=== PATIENT | female | born 1985 ===

== ENCOUNTER 2020-08-19 01:08 | Observation (INO) | payer OTHER ==
[~2020-08-19] VITALS: Ht 167.6 cm; Wt 127.3 kg
[2020-08-19] VITALS (7 sets, daily range): BP systolic 119–142; BP diastolic 65–80; PULSE 63–109; TEMP 97.6–98.2
[2020-08-19 01:38] LABS: BASO % 0.3 % (0.0-2.0); EOS # 0.2 (0.0-0.7); EOS % 1.2 % (0-4.0); GRAN # 10.5 (1.4-6.5); HEMATOCRIT 37.8 % (37.0-47.0); HEMOGLOBIN 12.4 g/dl (12.5-16.0); LYMPH # 1.8 (1.2-3.4); LYMPH % 13.7 % (20.0-51.0); MEAN CELL VOLUME 84 fl (80.0-100.0); MEAN CORPUSCULAR HEMOGLOBIN 27 pg (27.0-31.0); MEAN CORPUSCULAR HGB CONC 33 g/dl (33.0-37.0); MEAN PLATELET VOLUME 10.2 fl (7.4-10.4); MONO # 0.7 (0.1-0.6); MONO % 5.4 % (1.7-9.3); PLATELET COUNT 350 K/mm3 (130-400); RED BLOOD COUNT 4.52 M/mm3 (4.10-5.30)
[2020-08-19] MEDS ORDERED: LOPRESSOR100 MG PO (01:42)
[2020-08-19] MEDS ORDERED: SYNTHROID0.1 MG/TAB PO (01:43)
[2020-08-19] MEDS ORDERED: SYNTHROID0.112 MG/T PO (01:44)
[2020-08-19] MEDS ORDERED: DIOVAN 160MG160 MG PO (01:45)
[2020-08-19] MEDS ORDERED: ONE DAILY MULTI1 TA1 (01:46)
[2020-08-19] MEDS ORDERED: ZYRTEC 10MG10 MG PO (01:47)
[2020-08-19 01:52] LABS: INR 1.2 (0.8-3.0); PROTHROMBIN TIME 13.1 SECONDS (9.7-12.8)
[2020-08-19 01:57] LABS: ALANINE AMINOTRANSFERASE 43 U/L (4-34); ALBUMIN 4.4 gm/dL (3.5-5.0); ALKALINE PHOSPHATASE 77 U/L (50-136); ANION GAP 12 mmol/L (7-16); AST,SGOT 32 U/L (15-37); BILIRUBIN,TOTAL 0.1 mg/dL (0.0-1.0); BLOOD UREA NITROGEN 7 mg/dL (7-17); CALCIUM 9.4 mg/dL (8.4-10.2); CARBON DIOXIDE 19 mmol/L (22-30); CHLORIDE 107 mmol/L (98-107); CREATININE, serum 0.48 (0.52-1.25); GLUCOSE 122 mg/dL (74-106); POTASSIUM 3.9 mmol/L (3.4-5.0); SODIUM 138 mmol/L (137-145)
[2020-08-19 02:11] LABS: TROPONIN-I < 0.012 ng/mL (0.000-0.035)
[2020-08-19] MEDS ORDERED: ASPIRIN 32325 MG/TAB PO (03:26)
[2020-08-19 04:37] LABS: CHOLESTEROL RISK RATIO 2.8; MAGNESIUM 2.1 mg/dL (1.6-2.3)
--- NOTE | 2020-08-19 05:00 | NUR ---
Patient to medical room 309 at this time. She ambulates steadily from wheelchair to bed. She is alert and oriented and states she is still feeling chest tightness, but is much improved since arriving to ED. Heart rate is regular and tachycardic, lung sounds clear. No edema is present but patient is overweight. Pulses 2+ over 1+. Patient appears very anxious. Education regarding POC and room ammenities provided. Will continue to monitor.
[2020-08-19 05:08] LABS: TSH w REFLEX 4.5 uIU/mL (0.465-4.680)
--- NOTE | 2020-08-19 07:41 | NUR ---
Pt assessment complete. Pt is laying in bed upon entry, she is A/O x4. Pt is very anxious at this time. Asking for her Metoprolol. Discussed with patient POC. Pt frequently talking over staff, anxious about receiving her medications. Currently reports chest tightness, but states it is better than when she came in. No pain at this time. Denies SOB. Pt requesting to sleep at this time.
[2020-08-19 08:07] LABS: BASO # 0.1 (0.0-0.2); BASO % 0.6 % (0.0-2.0); EOS # 0.2 (0.0-0.7); EOS % 1.7 % (0-4.0); GRAN # 7.3 (1.4-6.5); GRAN % 67.5 % (42.2-75.2); HEMOGLOBIN 11.5 g/dl (12.5-16.0); LYMPH # 2.5 (1.2-3.4); LYMPH % 23.5 % (20.0-51.0); MEAN CELL VOLUME 84 fl (80.0-100.0); MEAN CORPUSCULAR HEMOGLOBIN 27 pg (27.0-31.0); MEAN CORPUSCULAR HGB CONC 33 g/dl (33.0-37.0); MEAN PLATELET VOLUME 11.2 fl (7.4-10.4); MONO # 0.7 (0.1-0.6); MONO % 6.2 % (1.7-9.3); PLATELET COUNT 293 K/mm3 (130-400); RED BLOOD COUNT 4.23 M/mm3 (4.10-5.30); REDCELL DISTRIBUTION WIDTH-CV 13.9 % (11.5-14.5)
[2020-08-19 08:09] LABS: HEMATOCRIT 35.3 % (37.0-47.0)
[2020-08-19 08:18] LABS: ANION GAP 9 mmol/L (7-16); BLOOD UREA NITROGEN 6 mg/dL (7-17); CALCIUM 8.9 mg/dL (8.4-10.2); CARBON DIOXIDE 22 mmol/L (22-30); CHLORIDE 106 mmol/L (98-107); CREATININE, serum 0.46 (0.52-1.25); GLUCOSE 98 mg/dL (74-106); POTASSIUM 3.7 mmol/L (3.4-5.0); SODIUM 137 mmol/L (137-145)
[2020-08-19 08:30] LABS: TROPONIN-I < 0.012 ng/mL (0.000-0.035)
--- NOTE | 2020-08-19 13:00 | NUR ---
Computer Numerical Control Operator met with the patient to complete intake. The patient lives on [address] with her Black and their two children. The patient's PCP is Ms. Grimes at [facility] and patient receives medications on [place] as well. The patient does not have advanced directives in the EMR but states they are completed and designate Black. The patient plans to return home at discharge with Black providing transportation. Discharge disposition: Home with Black
--- NOTE | 2020-08-19 13:13 | NUR ---
Pt worried about starting new medications. Attempted to reassure patient, offered to have pharmacist come speak with patient. Pt comfortable with this. She is also asking about an ablation and VQ scan. Answered questions to best of ability. Call light within reach.
--- NOTE | 2020-08-19 16:37 | NUR ---
Pt refusing to take Losartan at this time. She would like to talk with Cardiology prior to taking this med and beta tressa. Cardiology contacted by Pharmacy as they had tried to speak with patient about medications.
--- NOTE | 2020-08-19 20:45 | NUR ---
Shift assessment completed. Patient denies SOB, headache, dizziness, or N/V. Patient reports some chest tightness. Patient was very anxious about starting her new medication Nadolol and wanted to talk to Dr. Stearns prior to taking medication. Called DR. Stearns and talked to the patient on the phone regarding new medication. After talking to Dr. Stearns, patient was still anxious about taking this medication. Called pharmacy and pharmacy staff talked with the patient on the phone. After talking to pharmacy staff, patient took Nadolol. Assisted patient took a shower afterwards. Sandwitch box provided per patient request. Call light within reach. Will continue to monitor.
--- NOTE | 2020-08-19 22:21 | NUR ---
Patient reports chest tightness gets worse and having sharp pain radiates to left shoulder and left arm for a few seconds around 2200 pm. BP was 137/77, HR 82 at this time. Called hospitalist ALISA Dangelo at 2200 and Loreto came to the room 309 to assess the patient. EKG ordered and done at this time. EKG result normal. Troponin lab draw at this time and wating for result. Patient was very very anxious about everything. PRN Ativan given for anxiety. Call light within reach. Will continue to monitor.
[2020-08-20 02:50] VITALS: BP 119/64; PULSE 87; TEMP 98
--- NOTE | 2020-08-20 05:57 | NUR ---
Patient fell asleep after PRN Ativan given last night. Patient slept through the night. VS WNL. HR was 75-85 throughout the night after the first dose of Nadolol. Call light within reach. Will give report to day shift nurse.
--- NOTE | 2020-08-20 07:00 | NUR ---
Report with NOHEMI Rosenthal. Pt resting in bed, drowsy, denies needs at this time. Call light in reach.
[2020-08-20 07:41] VITALS: BP 118/60; PULSE 85; TEMP 97.7
--- NOTE | 2020-08-20 08:00 | NUR ---
Assessment complete. Pt resting in bed, A&O x 4, reports headache that has lasted over NOC, requesting coffee but plan for day is unknown. Saline lock IV to left hand without s/s of complications. This nurse agrees to update pt with any changes in POC for the day. No further needs reported. Call light in reach.
--- NOTE | 2020-08-20 09:45 | NUR ---
Pt ambulating in room then reports dizziness with movement. VSS. Blood sugar assessed d/t pt not eating this morning, stable. Pt wondering about it being a side effect from the new medication last night. Provider notified.
[2020-08-20 09:50] VITALS: BP 128/77; PULSE 81
--- NOTE | 2020-08-20 10:40 | NUR ---
Pt to cardiopulmonary for testing via WC, reports still feeling dizzy but wants to try.
[2020-08-20 12:00] VITALS: BP 124/60; PULSE 72; TEMP 97.5
[2020-08-20] MEDS ORDERED: CORGARD80 MG PO (12:21)
[2020-08-20] MEDS ORDERED: DIOVAN 80MG80 MG PO (12:21)
--- NOTE | 2020-08-20 13:16 | NUR ---
First visit from the heel seat pounder. prayed with patient. No other needs right now.
[2020-08-20 15:20] VITALS: BP 133/78; PULSE 80
--- NOTE | 2020-08-20 16:26 | NUR ---
Discharge instructions reviewed with pt regarding new/changes to medications and follow-up appointments and using heart monitor upon arrival. Questions invited and answered. Pt verbalizes understanding, discharged home, ambulates out of facility accompanied by family and nurse.
[2020-08-21 10:32] LABS: ANA SCREEN with REFLEX Negative (Negative)
[2020-08-21 13:54] LABS: LUPUS ANTICOAGULANT INR 1.1 (0.7-1.3); LUPUS ANTICOAGULANT PT 14.1 Seconds (())
[2020-08-21 17:07] LABS: FACTOR V 68 % (70-120)
[2020-08-22 10:10] LABS: ANTI-THROMBIN III 100 % (72-128)
[2020-08-22 12:37] LABS: VW FACTOR ACTIVITY 110 % (55 - 200); VW FACTOR ANTIGEN 139 % (55 - 200)
[2020-08-22 16:05] LABS: VW COAG FACTOR 156 % (55 - 200)
[2020-08-25 11:59] LABS: INHIBITOR SCREEN INTERPRETATN SEE PCI; LUPUS ANTICOAG DRVVT CONFIRM SEE PCI; LUPUS DRVVT RATIO SEE PCI
[2020-08-25 12:00] LABS: HEXAGONAL PHOSPHOLIPID NEUTRAL SEE PCI; PT INCUBATED 1:1 MIXING STUDY SEE PCI; PT ROOM TEMP 1:1 MIXING STUDY SEE PCI; PTT INCUBATED 1:1 MIXING STUDY SEE PCI; PTT ROOM TEMP 1:1 MIXING STUDY SEE PCI; PTT-LA INCUBATED 1:1 MIX STUDY SEE PCI
== END 2020-08-20 16:30 | disposition home or self-care (01) ==
LOC: COL.ER 01:08 → MEDICAL 02:59
PROVIDERS: Emergency Medicine; Student in an Organized Health Care Education/Training Program; ADMIT Family Medicine
DX: R07.89 Other chest pain (principal); R00.2 Palpitations; I47.1 Supraventricular tachycardia; I34.1 Nonrheumatic mitral (valve) prolapse; D72.829 Elevated white blood cell count, unspecified; O03.9 Complete or unspecified spontaneous abortion without complication; I34.0 Nonrheumatic mitral (valve) insufficiency; E03.9 Hypothyroidism, unspecified; D64.9 Anemia, unspecified; F41.9 Anxiety disorder, unspecified; F32.9 Major depressive disorder, single episode, unspecified; Z88.6 Allergy status to analgesic agent; Z88.8 Allergy status to other drugs, medicaments and biological substances; Z88.1 Allergy status to other antibiotic agents; Z79.890 Hormone replacement therapy; Z79.899 Other long term (current) drug therapy; Z88.2 Allergy status to sulfonamides; Z86.718 Personal history of other venous thrombosis and embolism
CPT/HCPCS: 99239; A9540; A9567; G0378; J1644; J2060; J7030

== ENCOUNTER 2020-08-23 12:32 | Emergency (ER) | payer OTHER ==
[~2020-08-23] VITALS: Ht 167.6 cm; Wt 125.5 kg
[~2020-08-23 12:32] MED LIST: ASPIRIN 32325 MG/TAB PO; CORGARD80 MG PO; DIOVAN 160MG160 MG PO; DIOVAN 80MG80 MG PO; LOPRESSOR100 MG PO; ONE DAILY MULTI1 TA1; SYNTHROID0.1 MG/TAB PO; SYNTHROID0.112 MG/T PO; ZYRTEC 10MG10 MG PO
[2020-08-23 12:41] VITALS: TEMP 98.7
[2020-08-23 13:07] LABS: BASO # 0.1 (0.0-0.2); BASO % 0.5 % (0.0-2.0); EOS # 0.3 (0.0-0.7); EOS % 2.2 % (0-4.0); GRAN # 9.9 (1.4-6.5); GRAN % 79.5 % (42.2-75.2); HEMATOCRIT 40.4 % (37.0-47.0); HEMOGLOBIN 13.1 g/dl (12.5-16.0); LYMPH # 1.6 (1.2-3.4); LYMPH % 12.6 % (20.0-51.0); MEAN CELL VOLUME 85 fl (80.0-100.0); MEAN CORPUSCULAR HEMOGLOBIN 28 pg (27.0-31.0); MEAN CORPUSCULAR HGB CONC 32 g/dl (33.0-37.0); MEAN PLATELET VOLUME 10.6 fl (7.4-10.4); MONO # 0.6 (0.1-0.6); MONO % 4.7 % (1.7-9.3); PLATELET COUNT 376 K/mm3 (130-400); RED BLOOD COUNT 4.73 M/mm3 (4.10-5.30); REDCELL DISTRIBUTION WIDTH-CV 13.3 % (11.5-14.5)
[2020-08-23 13:18] LABS: ALANINE AMINOTRANSFERASE 80 U/L (4-34); ALBUMIN 4.4 gm/dL (3.5-5.0); ALKALINE PHOSPHATASE 74 U/L (50-136); ANION GAP 11 mmol/L (7-16); AST,SGOT 51 U/L (15-37); BILIRUBIN,TOTAL 0.3 mg/dL (0.0-1.0); BLOOD UREA NITROGEN 8 mg/dL (7-17); CALCIUM 9.4 mg/dL (8.4-10.2); CARBON DIOXIDE 25 mmol/L (22-30); CHLORIDE 102 mmol/L (98-107); CREATININE, serum 0.61 (0.52-1.25); GLUCOSE 98 mg/dL (74-106); POTASSIUM 3.9 mmol/L (3.4-5.0); SODIUM 138 mmol/L (137-145); TOTAL PROTEIN 9.2 gm/dL (6.4-8.2)
[2020-08-23 13:20] LABS: INR 1.2 (0.8-3.0); PROTHROMBIN TIME 13.5 SECONDS (9.7-12.8)
[2020-08-23 13:23] LABS: PARTIAL THROMBOPLASTIN TIME 32.8 SECONDS (26.0-37.0)
[2020-08-23 13:28] LABS: TROPONIN-I < 0.012 ng/mL (0.000-0.035)
[2020-08-23 14:29] VITALS: BP 120/80; PULSE 80
== END 2020-08-23 14:29 | disposition home or self-care (01) ==
LOC: COL.ER 12:32
PROVIDERS: Family Medicine
DX: F41.9 Anxiety disorder, unspecified (principal); I10 Essential (primary) hypertension; E03.9 Hypothyroidism, unspecified; Z88.1 Allergy status to other antibiotic agents; Z88.2 Allergy status to sulfonamides; Z88.5 Allergy status to narcotic agent; Z88.8 Allergy status to other drugs, medicaments and biological substances; Z79.890 Hormone replacement therapy; Z79.82 Long term (current) use of aspirin
CPT/HCPCS: J2060

== ENCOUNTER 2020-08-27 19:16 | Emergency (ER) | payer OTHER ==
[~2020-08-27] VITALS: Ht 167.6 cm; Wt 125.5 kg
[2020-08-27 19:51] VITALS: BP 132/65; TEMP 98.6
[2020-08-27 22:29] LABS: BASO % 0.2 % (0.0-2.0); GRAN # 9.5 (1.4-6.5); HEMATOCRIT 39.2 % (37.0-47.0); HEMOGLOBIN 12.7 g/dl (12.5-16.0); LYMPH # 0.7 (1.2-3.4); MEAN CELL VOLUME 85 fl (80.0-100.0); MEAN CORPUSCULAR HEMOGLOBIN 28 pg (27.0-31.0); MEAN CORPUSCULAR HGB CONC 32 g/dl (33.0-37.0); MEAN PLATELET VOLUME 11.6 fl (7.4-10.4); MONO # 0.3 (0.1-0.6); MONO % 2.4 % (1.7-9.3); PLATELET COUNT 349 K/mm3 (130-400); RED BLOOD COUNT 4.62 M/mm3 (4.10-5.30); REDCELL DISTRIBUTION WIDTH-CV 13.6 % (11.5-14.5)
[2020-08-27 22:37] LABS: ALBUMIN 4.5 gm/dL (3.5-5.0); BILIRUBIN,TOTAL 0.1 mg/dL (0.0-1.0); CALCIUM 9.5 mg/dL (8.4-10.2); CREATININE, serum 0.46 (0.52-1.25); POTASSIUM 3.8 mmol/L (3.4-5.0); TOTAL PROTEIN 9.2 gm/dL (6.4-8.2)
[2020-08-27 23:17] VITALS: PULSE 98
== END 2020-08-27 23:18 | disposition home or self-care (01) ==
LOC: COL.ER 19:16
PROVIDERS: Nurse Practitioner Primary Care
DX: F41.9 Anxiety disorder, unspecified (principal); R00.2 Palpitations; T44.7X5A Adverse effect of beta-adrenoreceptor antagonists, initial encounter; I10 Essential (primary) hypertension; E03.9 Hypothyroidism, unspecified; G43.909 Migraine, unspecified, not intractable, without status migrainosus; Z86.718 Personal history of other venous thrombosis and embolism; Z88.6 Allergy status to analgesic agent; Z88.1 Allergy status to other antibiotic agents; Z88.5 Allergy status to narcotic agent; Z88.2 Allergy status to sulfonamides; Z88.8 Allergy status to other drugs, medicaments and biological substances; Z79.890 Hormone replacement therapy; Z79.82 Long term (current) use of aspirin; Z79.899 Other long term (current) drug therapy
CPT/HCPCS: J2930

== ENCOUNTER 2020-09-27 07:38 | Emergency (ER) | payer OTHER ==
[~2020-09-27] VITALS: Ht 167.6 cm; Wt 127.3 kg
[2020-09-27 07:44] VITALS: TEMP 97.9
[2020-09-27 10:30] VITALS: BP 132/91; PULSE 85
== END 2020-09-27 10:31 | disposition home or self-care (01) ==
LOC: COL.ER 07:38
DX: M79.89 Other specified soft tissue disorders (principal); F41.9 Anxiety disorder, unspecified; I10 Essential (primary) hypertension; E03.9 Hypothyroidism, unspecified; Z88.1 Allergy status to other antibiotic agents; Z88.2 Allergy status to sulfonamides; Z88.5 Allergy status to narcotic agent; Z88.6 Allergy status to analgesic agent; Z88.8 Allergy status to other drugs, medicaments and biological substances; Z79.890 Hormone replacement therapy; Z79.899 Other long term (current) drug therapy

== ENCOUNTER → 2020-12-12 | Outpatient (CLI) | payer OTHER | LOC: COL.RAD 07:25 | DX: R20.2 Paresthesia of skin (principal) | CPT/HCPCS: A9585 ==

== ENCOUNTER → 2020-12-25 | Outpatient (CLI) | payer OTHER | LOC: COL.RAD 09:56 | DX: R51.9 Headache, unspecified (principal); R13.10 Dysphagia, unspecified ==

== ENCOUNTER 2021-09-26 17:18 | Emergency (ER) | payer OTHER ==
[~2021-09-26] VITALS: Ht 167.6 cm; Wt 120.0 kg
[2021-09-26 17:25] VITALS: TEMP 97.9
[2021-09-26] MEDS ORDERED: ASPIRIN 81M81 MG/TA2 PO (17:36)
[2021-09-26] MEDS ORDERED: MULTIPLE VITAMI1 TA5 PO (17:37)
[2021-09-26] MEDS ORDERED: TENORMIN 2525 MG/TAB PO (17:37)
[2021-09-26] MEDS ORDERED: VITAMIN C500 MG PO (17:38)
[2021-09-26 17:46] LABS: BASO # 0.1 K/mm3 (0.0-0.2); BASO % 0.5 % (0.0-2.0); EOS # 0.3 K/mm3 (0.0-0.7); EOS % 2.6 % (0.0-4.0); GRAN # 8.1 K/mm3 (1.4-6.5); GRAN % 71.8 % (42.2-75.2); HEMATOCRIT 37.8 % (37.0-47.0); HEMOGLOBIN 12.8 g/dl (12.5-16.0); LYMPH # 2.2 K/mm3 (1.2-3.4); LYMPH % 19.2 % (20.0-51.0); MEAN CELL VOLUME 86 fl (80.0-100.0); MEAN CORPUSCULAR HEMOGLOBIN 29 pg (27-31); MEAN CORPUSCULAR HGB CONC 34 g/dl (33.0-37.0); MEAN PLATELET VOLUME 10.3 fl (7.4-10.4); MONO # 0.6 K/mm3 (0.1-0.6); MONO % 5.5 % (1.7-9.3); PLATELET COUNT 344 K/mm3 (130-400); RED BLOOD COUNT 4.42 M/mm3 (4.10-5.30); REDCELL DISTRIBUTION WIDTH-CV 12.7 % (11.5-14.5)
[2021-09-26 18:02] LABS: STREP SCREEN NEGATIVE
[2021-09-26 18:03] LABS: ALANINE AMINOTRANSFERASE 26 U/L (0-55); ALBUMIN 3.7 gm/dL (3.5-5.0); ALKALINE PHOSPHATASE 74 U/L (40-150); ANION GAP 12 mmol/L (7-16); AST,SGOT 17 U/L (5-34); BILIRUBIN,TOTAL 0.2 mg/dL (0.2-1.2); BLOOD UREA NITROGEN 11 mg/dL (7-19); C-REACTIVE PROTEIN 1.64 mg/dL (0.00-0.50); CALCIUM 8.6 mg/dL (8.4-10.2); CARBON DIOXIDE 21 mmol/L (22-29); CHLORIDE 107 mmol/L (98-107); CREATININE, serum 0.72 mg/dL (0.57-1.11); GLUCOSE 129 mg/dL (70-99); POTASSIUM 3.7 mmol/L (3.5-4.5); SODIUM 140 mmol/L (136-145); TOTAL PROTEIN 7.9 gm/dL (6.2-8.1)
[2021-09-26 18:23] LABS: TROPONIN-I < 0.010 ng/mL (0.00-0.033); TSH w REFLEX 2.547 uIU/mL (0.350-4.940)
[2021-09-26 19:25] VITALS: BP 109/86; PULSE 90
== END 2021-09-26 19:32 | disposition home or self-care (01) ==
LOC: COL.ER 17:18
PROVIDERS: Nurse Practitioner
DX: R07.89 Other chest pain (principal); R00.2 Palpitations; R79.1 Abnormal coagulation profile; Z28.310 Unvaccinated for COVID-19

== ENCOUNTER → 2021-11-24 | Outpatient (CLI) | payer OTHER ==
[~2021-11-24] MED LIST changes: +ASPIRIN 81M81 MG/TA2 PO; +MULTIPLE VITAMI1 TA5 PO; +TENORMIN 2525 MG/TAB PO; +VITAMIN C500 MG PO
== END ==
LOC: COL.RAD 09:45
DX: N83.202 Unspecified ovarian cyst, left side (principal); D25.9 Leiomyoma of uterus, unspecified

== ENCOUNTER 2021-12-23 17:30 | Emergency (ER) | payer OTHER ==
[~2021-12-23] VITALS: Ht 167.6 cm; Wt 114.1 kg
[2021-12-23 17:58] VITALS: TEMP 98.2
[2021-12-23 18:29] LABS: BASO # 0.1 K/mm3 (0.0-0.2); BASO % 0.5 % (0.0-2.0); EOS # 0.3 K/mm3 (0.0-0.7); EOS % 2.5 % (0.0-4.0); GRAN % 68.7 % (42.2-75.2); HEMATOCRIT 39.2 % (37.0-47.0); HEMOGLOBIN 12.9 g/dl (12.5-16.0); LYMPH # 2.2 K/mm3 (1.2-3.4); LYMPH % 21.4 % (20.0-51.0); MEAN CELL VOLUME 86 fl (80.0-100.0); MEAN CORPUSCULAR HEMOGLOBIN 28 pg (27-31); MEAN CORPUSCULAR HGB CONC 33 g/dl (33.0-37.0); MEAN PLATELET VOLUME 10.6 fl (7.4-10.4); MONO # 0.7 K/mm3 (0.1-0.6); MONO % 6.6 % (1.7-9.3); PLATELET COUNT 335 K/mm3 (130-400); RED BLOOD COUNT 4.54 M/mm3 (4.10-5.30); REDCELL DISTRIBUTION WIDTH-CV 12.5 % (11.5-14.5)
[2021-12-23 18:43] LABS: ALANINE AMINOTRANSFERASE 38 U/L (0-55); ALBUMIN 3.7 gm/dL (3.5-5.0); ALKALINE PHOSPHATASE 72 U/L (40-150); ANION GAP 10 mmol/L (7-16); AST,SGOT 21 U/L (5-34); BILIRUBIN,TOTAL 0.3 mg/dL (0.2-1.2); BLOOD UREA NITROGEN 8 mg/dL (7-19); CALCIUM 9.4 mg/dL (8.4-10.2); CARBON DIOXIDE 22 mmol/L (22-29); CHLORIDE 105 mmol/L (98-107); CREATININE, serum 0.65 mg/dL (0.57-1.11); GLUCOSE 111 mg/dL (70-99); POTASSIUM 4.1 mmol/L (3.5-4.5); SODIUM 137 mmol/L (136-145); TOTAL PROTEIN 8.1 gm/dL (6.2-8.1)
[2021-12-23 19:26] LABS: TROPONIN-I < 0.010 ng/mL (0.00-0.033)
[2021-12-23 19:44] VITALS: BP 119/77; PULSE 77
== END 2021-12-23 19:45 | disposition home or self-care (01) ==
LOC: COL.ER 17:30
PROVIDERS: Physician Assistant
DX: R00.2 Palpitations (principal); R79.1 Abnormal coagulation profile; Z86.79 Personal history of other diseases of the circulatory system; Z28.310 Unvaccinated for COVID-19